=== PATIENT | female | born 1940 | race Caucasian/White ===

== ENCOUNTER → 2017-07-21 | Outpatient (CLI) | payer OTHER ==
--- NOTE | 2017-07-21 20:51 | DIAGNOSTIC IMAGING REPORT ---
ABDOMEN WITHOUT CONTRAST CLINICAL HISTORY: ABN ULTRASOUND pain. Nausea. TECHNIQUE: Imaging was performed without IV contrast enhancement. COMPARISON STUDY: No previous studies for comparison. FINDINGS: Lung bases are considered clear. Mild fatty infiltration of liver. No significant space-occupying hepatic lesions. Spleen is uniform. Gallbladder is contracted. Visualized components of the biliary ductal system appear unremarkable. Moderate fatty replacement of the pancreas. No significant distention of the pancreatic orbital or ductal system. Bowel pattern is nonobstructive. No significant abdominal or retroperitoneal adenopathy. Signal characteristics of the kidneys are unremarkable. IMPRESSION: 1. Contracted gallbladder. 2. Fatty infiltration of liver. 3. Otherwise negative study. The above report was generated using voice recognition software. It may contain grammatical, syntax or spelling errors. Electronically signed by: Yaya Ibrahim M.D. 07/21/2017 8:49 PM Dictated Date/Time: 07/21/2017 8:48 PM
== END | disposition home or self-care (01) ==
LOC: C.MRI 18:43
PROVIDERS: ATTEND Internal Medicine
DX: R93.8 Abnormal findings on diagnostic imaging of other specified body structures (principal); K82.0 Obstruction of gallbladder; K76.0 Fatty (change of) liver, not elsewhere classified